=== PATIENT | female | born 1965 | race Caucasian/White ===

== ENCOUNTER → 2018-01-09 | Outpatient (CLI) | payer OTHER ==
[~2018-01-09] MED LIST: AMPDEX10CR PO; Advil200 M1 PO; HYDR1TAB94 PO
== END | disposition home or self-care (01) ==
LOC: OLS 15:35 → LAB SHORT 15:35
PROVIDERS: Nurse Practitioner Women's Health
DX: Z12.4 Encounter for screening for malignant neoplasm of cervix (principal); Z87.42 Personal history of other diseases of the female genital tract
CPT/HCPCS: 87624; G0123

== ENCOUNTER → 2020-06-28 | Outpatient (CLI) | payer OTHER | END | disposition home or self-care (01) | LOC: LAB SHORT 16:00 → PLD 16:00 | DX: L81.4 Other melanin hyperpigmentation (principal); L57.8 Other skin changes due to chronic exposure to nonionizing radiation | CPT/HCPCS: 88305 ==

== ENCOUNTER → 2021-02-24 | Outpatient (CLI) | payer OTHER | LOC: LAB SHORT 13:49 | DX: R31.9 Hematuria, unspecified (principal) | CPT/HCPCS: 87086 ==

== ENCOUNTER 2021-10-27 07:56 | Day surgery (SDC) | payer OTHER ==
[~2021-10-27] VITALS: Ht 167.6 cm; Wt 53.5 kg
== END 2021-10-27 10:18 | disposition home or self-care (01) ==
LOC: ORSCSDS 07:56
PROVIDERS: Internal Medicine Gastroenterology
PROC: 0DBE8ZX Excision of Large Intestine, Via Natural or Artificial Opening Endoscopic, Diagnostic (ICD-10-PCS; principal; 2021-10-27 09:00)
PROC: 0DBN8ZX Excision of Sigmoid Colon, Via Natural or Artificial Opening Endoscopic, Diagnostic (ICD-10-PCS; principal; 2021-10-27 09:00)
DX: R19.4 Change in bowel habit (principal); Z86.010 Personal history of colon polyps; D12.5 Benign neoplasm of sigmoid colon; R10.84 Generalized abdominal pain; K57.30 Diverticulosis of large intestine without perforation or abscess without bleeding; Z79.899 Other long term (current) drug therapy
CPT/HCPCS: 88305; J2704; J7120

== ENCOUNTER → 2023-07-20 | Outpatient (CLI) | payer OTHER | LOC: LAB 11:57 → LAB SHORT 11:57 | DX: R30.0 Dysuria (principal); R35.0 Frequency of micturition; R31.9 Hematuria, unspecified | CPT/HCPCS: 87086 ==